=== PATIENT | male | born 1980 | race Caucasian/White ===

== ENCOUNTER 2018-03-17 20:03 | Emergency (ER) | payer SELFPAY ==
[~2018-03-17] VITALS: Ht 172.7 cm; Wt 113.4 kg
[2018-03-17 20:20] VITALS: BP 148/94
--- NOTE | 2018-03-17 20:21 | NUR ---
PT AMBULATORY TO ER LOBBY W/ STEADY GAIT IN STABLE CONDITION.
--- NOTE | 2018-03-17 20:21 | NUR ---
PT PRESENTS TO ED WITH STERNAL CHEST PAIN <1 HR. PT STATES GETTING OUT OF WORK WHEN PAIN STARTED. NON-RADIATING. NO SOB OR DYSPNEA. VSS. POSITIONED IN BED FOR COMFORT. ER MD AWARE. CONTINUE TO MONITOR.
[2018-03-17] MEDS ORDERED: NACL 0.9% 1,000 ML IV ONE (21:25)
[2018-03-17] MEDS ORDERED: ASPIRIN 81 MG TAB.CHEW PO ONE (21:25)
[2018-03-17] MEDS ORDERED: KETOROLAC 30 MG/ML VIAL IVP ONE (21:25)
--- NOTE | 2018-03-17 21:35 | NUR ---
Dr. Parks evaluating patient at bedside.
[2018-03-17 21:49] LABS: BASOPHILS # (AUTO) 0.1 K/uL (0.00-0.22); BASOPHILS % (AUTO) 1.1 % (0.0-2.0); EOSINOPHILS # (AUTO) 0.4 K/uL (0-0.4); EOSINOPHILS % (AUTO) 3.8 % (0.0-4.0); HEMATOCRIT 43.3 % (36-52); HEMOGLOBIN 14.2 g/dL (12.0-18.0); LYMPHOCYTES # (AUTO) 3.3 K/uL (2.0-11.5); LYMPHOCYTES % (AUTO) 35.2 % (20.5-51.1); MEAN CORPUSCULAR HEMOGLOBIN 28 pg (27-31); MEAN CORPUSCULAR HGB CONC 33 g/dL (33-37); MEAN CORPUSCULAR VOLUME 86.4 fL (80-94); MONOCYTES # (AUTO) 0.8 K/uL (0.8-1.0); MONOCYTES % (AUTO) 8.6 % (1.7-9.3); NEUTROPHILS # (AUTO) 4.8 K/uL (1.8-7.7); NEUTROPHILS % (AUTO) 51.3 % (42.2-75.2); PLATELET COUNT (AUTO) 214 K/uL (140-450); RED BLOOD CELL COUNT(AUTO) 5.01 MIL/uL (4.20-6.10); WHITE BLOOD COUNT (AUTO) 9.4 K/uL (4.8-10.8)
[2018-03-17 22:10] LABS: ALBUMIN 3.9 g/dL (3.4-5.0); ANION GAP 17.2 (8-16); CARBON DIOXIDE 24.9 mmol/L (21-32); POTASSIUM 4.1 mmol/L (3.5-5.1); TOTAL BILIRUBIN 0.3 mg/dL (0.0-1.0)
[2018-03-17 22:18] LABS: PROTHROMBIN TIME 9.9 secs (10.8-13.4)
--- NOTE | 2018-03-17 22:40 | NUR ---
IV D/C; PRESSURE AND BANDAGE APPLIED; NO REDDNESS OR SWELLING NOTED AT THIS TIME, PT TOLERATED WELL.
[2018-03-17 22:45] VITALS: BP 114/54
== END 2018-03-17 22:46 | disposition home or self-care (01) ==
LOC: MED 20:03
DX: R07.89 Other chest pain (principal); R20.0 Anesthesia of skin; Z87.891 Personal history of nicotine dependence
CPT/HCPCS: 36415; 71045; 80053; 84484; 85025; 85610; 85730; 93005; 96374; 99284; J1885; J7030

== ENCOUNTER 2019-02-14 02:14 | Emergency (ER) | payer OTHER ==
[~2019-02-14] VITALS: Ht 172.7 cm; Wt 113.4 kg
[2019-02-14 02:19] VITALS: BP 131/84
--- NOTE | 2019-02-14 02:49 | NUR ---
PT AMBULATED TO BED
[2019-02-14] MEDS ORDERED: KETOROLAC 30 MG/ML VIAL IM ONE (03:05)
--- NOTE | 2019-02-14 03:30 | NUR ---
38 Y/O MALE PRESENTS TO ED, C/O CHEST PAIN 09/21 THAT STARTED "A COUPLE OF HOURS AGO" PER PT. PAIN DOES NOT RADIATE. NO SOB/DIFFICULTY OF BREATHING NOTED. PT DENIES ANY HEADACHE OR DIZZINESS. PT DENIES TAKING ANY MEDICATIONS PRIOR TO ARRIVAL AT ED. NO N/V/D. PT AT STABLE CONDITION. ERMD MADE AWARE. WILL CONTINUE TO MONITOR.
[2019-02-14 03:32] LABS: BASOPHILS # (AUTO) 0.1 K/uL (0.00-0.22); BASOPHILS % (AUTO) 2.2 % (0.0-2.0); EOSINOPHILS # (AUTO) 0.5 K/uL (0-0.4); EOSINOPHILS % (AUTO) 7.9 % (0.0-4.0); HEMATOCRIT 43.1 % (36-52); HEMOGLOBIN 14.2 g/dL (12.0-18.0); LYMPHOCYTES # (AUTO) 1.8 K/uL (2.0-11.5); LYMPHOCYTES % (AUTO) 28.6 % (20.5-51.1); MEAN CORPUSCULAR HEMOGLOBIN 29 pg (27-31); MEAN CORPUSCULAR HGB CONC 33 g/dL (33-37); MONOCYTES # (AUTO) 0.5 K/uL (0.8-1.0); MONOCYTES % (AUTO) 8.2 % (1.7-9.3); NEUTROPHILS # (AUTO) 3.4 K/uL (1.8-7.7); NEUTROPHILS % (AUTO) 53.1 % (42.2-75.2); PLATELET COUNT (AUTO) 195 K/uL (140-450); RED CELL DISTRIBUTION WIDTH 13.9 % (11.6-13.7); WHITE BLOOD COUNT (AUTO) 6.4 K/uL (4.8-10.8)
[2019-02-14 03:45] LABS: ANION GAP 13.7 (8-16); CARBON DIOXIDE 26.2 mmol/L (21-32); CREATININE 0.9 mg/dL (0.7-1.3); POTASSIUM 3.9 mmol/L (3.5-5.1)
[2019-02-14 03:52] LABS: ALBUMIN 3.6 g/dL (3.4-5.0); TOTAL BILIRUBIN 0.3 mg/dL (0.0-1.0)
[2019-02-14 04:50] VITALS: BP 139/73
--- NOTE | 2019-02-14 04:50 | NUR ---
PT DISCHARGED WITH PAPERWORK. RX JUAN NAGY. EDUCATED PT REGARDING MEDICATIONS. EDUCATED PT REGARDING D/C DIAGNOSIS. TOLD PT WHEN TO RETURN TO ED. PT AT STABLE CONDITION, DENIES ANY PAIN. ALL QUESTIONS ANSWERED.
== END 2019-02-14 04:50 | disposition home or self-care (01) ==
LOC: MED 02:14
DX: R07.89 Other chest pain (principal)
CPT/HCPCS: 36415; 71045; 80053; 83880; 84484; 85025; 85379; 96372; 99284; J1885; Q0092

== ENCOUNTER 2019-04-11 21:37 | Emergency (ER) | payer OTHER ==
[~2019-04-11] VITALS: Ht 175.3 cm; Wt 113.4 kg
[2019-04-11 21:50] VITALS: BP 127/63
--- NOTE | 2019-04-11 21:50 | NUR ---
TO BED # 07 AMBULATORY
--- NOTE | 2019-04-11 21:50 | NUR ---
38 Y/O MALE C/O FLANK PAIN RADIATING TO ABDOMEN. ABDOMEN IS ROUND AND DISTENDED. TENDERNESS UPON PALPATION. PATIENT HAS N/V; -DIARRHEA. LAST BOWEL MOVEMENT WAS TODAY; NORMAL. ABDOMINAL SOUNDS HEARD ON AL FOUR QUADRANTS. PAIN IS A 6/10; FACIAL GRIMACING NOTED. ERMD MADE AWARE OF STATUS. SIDE RAILSX1. PLACED ON MONITOR. WILL CONTINUE TO MONITOR. PMH:DENIES RX:DENIES NKDA
[2019-04-11] MEDS ORDERED: DICYCLOMINE HCL LIQUID 20 MG, ALUMINUM HYD/MAG/SIMETHICONE 30 ML, LIDOCAINE VISCOUS 2% ... PO ONE ×3 (22:15)
[2019-04-11] MEDS ORDERED: ONDANSETRON 4 MG ODT PO ONE (22:15)
[2019-04-11] MEDS ORDERED: ALUMINUM HYD/MAG/SIMETHICONE 30 ML UDC ONE (22:28)
[2019-04-11] MEDS ORDERED: LIDOCAINE VISCOUS 2% 20 ML UDC ONE (22:28)
[2019-04-11] MEDS ORDERED: DICYCLOMINE HCL LIQUID 10 MG/5 ML UDC ONE (22:28)
[2019-04-11 22:34] LABS: BASOPHILS # (AUTO) 0.1 K/uL (0.00-0.22); BASOPHILS % (AUTO) 0.8 % (0.0-2.0); EOSINOPHILS # (AUTO) 0.4 K/uL (0-0.4); EOSINOPHILS % (AUTO) 4.7 % (0.0-4.0); HEMATOCRIT 40.9 % (36-52); HEMOGLOBIN 13.3 g/dL (12.0-18.0); LYMPHOCYTES # (AUTO) 3.4 K/uL (2.0-11.5); LYMPHOCYTES % (AUTO) 38.3 % (20.5-51.1); MEAN CORPUSCULAR HEMOGLOBIN 29 pg (27-31); MEAN CORPUSCULAR HGB CONC 33 g/dL (33-37); MEAN CORPUSCULAR VOLUME 87.9 fL (80-94); MONOCYTES # (AUTO) 0.7 K/uL (0.8-1.0); MONOCYTES % (AUTO) 8.2 % (1.7-9.3); NEUTROPHILS # (AUTO) 4.3 K/uL (1.8-7.7); PLATELET COUNT (AUTO) 200 K/uL (140-450); RED BLOOD CELL COUNT(AUTO) 4.65 MIL/uL (4.20-6.10); RED CELL DISTRIBUTION WIDTH 14.2 % (11.6-13.7); WHITE BLOOD COUNT (AUTO) 8.9 K/uL (4.8-10.8)
--- NOTE | 2019-04-11 22:44 | NUR ---
PATIENT VOMITED 100ML OF LIQUID. ERMD MADE AWARE.
[2019-04-11] MEDS ORDERED: KETOROLAC 30 MG/ML VIAL IVP ONE (22:45)
[2019-04-11] MEDS ORDERED: NACL 0.9% 1,000 ML IV ONE (22:45)
[2019-04-11] MEDS ORDERED: ONDANSETRON 4 MG/2 ML VIAL IVP ONE (22:45)
[2019-04-11 22:49] LABS: ANION GAP 12.3 (8-16); CARBON DIOXIDE 27.4 mmol/L (21-32); CREATININE 1.1 mg/dL (0.7-1.3); POTASSIUM 3.7 mmol/L (3.5-5.1)
[2019-04-11 22:55] LABS: ALBUMIN 3.8 g/dL (3.4-5.0); TOTAL BILIRUBIN 0.2 mg/dL (0.0-1.0)
--- NOTE | 2019-04-11 23:34 | NUR ---
ULTRASOUND AT BEDSIDE.
[2019-04-12] MEDS ORDERED: MORPHINE SULFATE 4 MG/ML SYR IVP ONE
--- NOTE | 2019-04-12 00:57 | NUR ---
ERMD AT BEDSIDE.
[2019-04-12 01:17] VITALS: BP 121/67
--- NOTE | 2019-04-12 01:17 | NUR ---
Patient discharged with v/s stable. Written and verbal after care instructions given and explained. Patient alert, oriented and verbalized understanding of instructions. Ambulatory with steady gait. All questions addressed prior to discharge. ID band removed. Patient advised to follow up with PMD. Rx of ZOFRAN AND NORCO given AND EDUCATED PATIENT ON SIDE EFFECTS. Patient educated on indication of medication including possible reaction and side effects. Opportunity to ask questions provided and answered.
--- NOTE | 2019-04-12 01:17 | NUR ---
Note ariannanano in EDM - 04/12/19 at 0119 by ANA DPatient discharged with v/s stable. Written and verbal after care instructions given and explained. Patient alert, oriented and verbalized understanding of instructions. Ambulatory with steady gait. All questions addressed prior to discharge. ID band removed. Patient advised to follow up with PMD. Rx of SOHEILA given AND EDUCATED PATIENT ON SIDE EFFECTS. Patient educated on indication of medication including possible reaction and side effects. Opportunity to ask questions provided and answered.
--- NOTE | 2019-04-12 11:41 | NUR ---
Late entry. Confirmed with RN that 0.9 NS IV completed at 2350
== END 2019-04-12 01:17 | disposition home or self-care (01) ==
LOC: MED 21:37
DX: R10.11 Right upper quadrant pain (principal); F17.200 Nicotine dependence, unspecified, uncomplicated
CPT/HCPCS: 36415; 76705; 80053; 81002; 82150; 83690; 85025; 96361; 96374; 96375; 99284; J1885; J2270; J2405; J7030; Q0092; Q0162

== ENCOUNTER 2019-11-23 18:32 | Emergency (ER) | payer OTHER ==
[~2019-11-23] VITALS: Ht 175.3 cm; Wt 110.2 kg
[2019-11-23 18:45] VITALS: BP 157/89
--- NOTE | 2019-11-23 19:00 | NUR ---
C/O LEFT MIDDLE FINGER PAIN S/P DROPPED WEIGHT ON LEFT MIDDLE FINGER X 2 DAYS.
--- NOTE | 2019-11-23 19:15 | NUR ---
REPORT RECEIEVED FROM CHRISTIAN CANTU FOR CONTINUITY OF CARE
--- NOTE | 2019-11-23 19:16 | NUR ---
REPORT GAVE TO PEPE PATE.
--- NOTE | 2019-11-23 19:18 | NUR ---
XRAY AT BEDSIDE
--- NOTE | 2019-11-23 20:02 | NUR ---
PA AT BEDSIDE
[2019-11-23] MEDS ORDERED: IBUPROFEN 600 MG TAB PO ONE (20:05)
[2019-11-23 20:21] VITALS: BP 157/89
== END 2019-11-23 20:21 | disposition home or self-care (01) ==
LOC: MED 18:32
DX: S60.132A Contusion of left middle finger with damage to nail, initial encounter (principal); X58.XXXA Exposure to other specified factors, initial encounter; Y93.89 Activity, other specified; Y92.89 Other specified places as the place of occurrence of the external cause; Y99.8 Other external cause status
CPT/HCPCS: 11740; 73140; 99284; Q0092